=== PATIENT | female | born 1995 | race Caucasian/White ===

== ENCOUNTER 2017-02-08 13:42 | Inpatient (IN) | payer BC, OTHER ==
[~2017-02-08] VITALS: Ht 162.6 cm; Wt 57.0 kg
[2017-02-08] MEDS ORDERED: ESCI1TAB6 PO (14:03)
[2017-02-08] MEDS ORDERED: CETI10TA10 PO (14:03)
[2017-02-08] MEDS ORDERED: [UNRECOGNIZED DRUG - CODE] PO (14:03)
[2017-02-08] MEDS ORDERED: XYLOCAINE 1%/SOD BICARB 20 ML VIAL INFIL ONE (14:30)
[2017-02-08 14:56] LABS: HEMATOCRIT 46.2 % (37-47); MEAN CELL VOLUME 87.8 fL (80-100); MEAN CORPUSCULAR HEMOGLOBIN 29.7 pg (25-34); MEAN CORPUSCULAR HGB CONC 33.8 g/dl (32-36); MEAN PLATELET VOLUME 9.8 fL (7.4-10.4); PLATELET COUNT 306 K/uL (130-400); RED BLOOD COUNT 5.26 M/uL (4.2-5.4); WHITE BLOOD COUNT 9.38 K/uL (4.8-10.8)
[2017-02-08 15:17] LABS: BUN/CREATININE RATIO 16.7 (10-20); CALCIUM 9.3 mg/dl (8.5-10.1); CREATININE 0.7 mg/dl (0.60-1.20); POTASSIUM 3.8 mmol/L (3.5-5.1)
[2017-02-08 15:22] LABS: PREG INTERNAL NEGATIVE QC NEG CLEAR BACKGROUND; PREG INTERNAL POSITIVE QC POS CONTROL LINE
[2017-02-08 15:26] LABS: ACETAMINOPHEN < 2 ug/ml (10-30)
[2017-02-08 15:27] LABS: THYROID STIMULATING HORMONE 1.18 uIu/ml (0.300-4.500)
--- NOTE | 2017-02-08 15:28 | EMERGENCY ROOM VISIT NOTE ---
ED Visit Note 21-year-old female who I was asked by Dr. Mendoza, ED attending physician, to perform a left volar wrist laceration repair. Please see Dr. Mendoza's dictation for further treatment and final disposition. PROCEDURE NOTE: Patient provided verbal consent for laceration repair under local anesthesia. Using buffered 1% lidocaine without epinephrine, good local anesthesia was administered. The wound was then peripherally cleansed with iodine, then the wound was irrigated with approximate 100 mL of normal saline. In sterile fashion, the wound was then approximated using 4-0 nylon simple interrupted sutures 5. Bacitracin dressing was applied. Total laceration length was 22 mm. The patient tolerated the procedure well without any blood loss.
[2017-02-08 16:18] LABS: BENZODIAZEPINE, URINE NEG (NEG); COCAINE,URINE NEG (NEG); PHENCYCLIDINE, URINE NEG (NEG)
[2017-02-08 16:27] LABS: MANUAL MICROSCOPIC REQUIRED? YES; URINE APPEARANCE CLOUDY (CLEAR); URINE BILIRUBIN NEG (NEG); URINE COLOR YELLOW; URINE NITRITE NEG (NEG); URINE PH 5.5 (4.5-7.5); URINE SPECIFIC GRAVITY 1.025 (1.000-1.030); UROBILINOGEN NEG (NEG)
[2017-02-08 16:36] LABS: REVIEW REQ? NO
[2017-02-08 16:38] LABS: URINE BACTERIA 4+ (NEG); URINE RBC 0-4 /hpf (0-4); URINE WBC >30 /hpf (0-5)
[2017-02-08] MEDS ORDERED: SULFAMETHOXAZOLE/TRIMETHOPRIM DS 800/160MG TAB PO STA (16:47)
[2017-02-08] MEDS ORDERED: SODIUM CHLORIDE 0.65% NA SOLN 45 ML (OCEAN) PRN (17:00)
[2017-02-08] MEDS ORDERED: hydrOXYzine HCL 25 MG TAB PO PRN ×2 (17:00)
[2017-02-08] MEDS ORDERED: MAGNESIUM HYDROXIDE SUSP 30 ML UDC PO PRN (17:00)
[2017-02-08] MEDS ORDERED: ACETAMINOPHEN 325 MG TAB PO PRN (17:00)
[2017-02-08] MEDS ORDERED: ALUMINUM/MAGNESIUM SUSP 30 ML UDC PO PRN (17:00)
[2017-02-08] MEDS ORDERED: BISMUTH SUBSALICYLATE PER ML OMNICELL CHARGE PO PRN (17:00)
--- NOTE | 2017-02-08 17:17 | EMERGENCY ROOM VISIT NOTE ---
History Report prepared by Tony: Jn Heath Under the Supervision of: Dr. Azar Mendoza M.D. First contact with patient: 14:11 Chief Complaint: MENTAL HEALTH EVALUATION Stated Complaint: SUICIDE ATTEMPT/302 History of Present Illness The patient is a 21 year old female who presents to the Emergency Room s/p suicide attempt occurring shortly prior to arrival. She states that she cut her left wrist vertically with an X-ACTO knife. Per friend, the patient texted her saying "always remember that I love you", and made allusions to never seeing them again. The patient has a history of depression for which she sees a therapist. She was recently started on medication for her depression, but has not taken it yet. She states that she has been very stressed about school, and going abroad next semester. The patient states that she has never attempted to harm herself in the past, but her friends state that she has attempted suicide before. She denies any pain or vomiting. She denies chance of . The patient's friend notes that the patient took Xanax this morning. She also notes that the patient has a tendency to lie regarding her mental health problems. There is a 302 petitioning statement for the patient. The patient denies any physical complaints. She states her tetanus is up-to-date. Source of History: patient Onset: Shortly prior to arrival Quality: other (suicide attempt) Timing: other (episode) Associated Symptoms: No headache, No neck pain, No chest pain, No vomiting, No abdominal pain, No back pain Review of Systems See HPI for pertinent positives & negatives. A total of 10 systems reviewed and were otherwise negative. Past Medical & Surgical Medical Problems: (1) Depression Family History No pertinent family history stated. Social History Smoking Status: Never Smoker Occupation Status: [employer] student Current/Historical Medications Scheduled Cetirizine Hcl (Zyrtec), 10 MG PO DAILY Escitalopram Oxalate (Lexapro), Unknown Dose PO DAILY Pseudoephedrine HCl (Cvs Nasal Decongestant), 30 MG PO DAILY Allergies Coded Allergies: Amoxicillin (Unverified Allergy, Severe, HIVES, 02/08/17) Physical Exam Vital Signs Date Time Temp Pulse Resp B/P (MAP) Pulse Ox O2 Delivery O2 Flow Rate FiO2 02/08/17 13:56 37.0 91 22 129/91 99 Room Air Physical Exam Constitutional: Vital signs reviewed. Eyes: Pupils are equal round reactive to light. Conjunctiva are noninjected. ENT: Pharynx is clear without erythema or exudate. Mucous membranes are moist. Neck supple without meningeal signs. Respiratory: Clear to auscultation bilaterally. Breath sounds are equal bilaterally. Cardiovascular: Regular rate and rhythm. No rubs or gallops. GI: Soft, nondistended and nontender. Bowel sounds are present. Musculoskeletal: 3 cm longitudinal, superficial laceration to the volar aspect of the left wrist. No tendon injury. Integumentary: No cyanosis. Neurological: The patient is awake and alert. No focal deficits. Psychiatric: Guarded affect. Medical Decision & Procedures Laboratory Results 02/08/17 14:37 02/08/17 14:37 Test 02/08/17 14:37 02/08/17 15:00 02/08/17 15:45 Red Blood Count 5.26 M/uL (4.2-5.4) Mean Corpuscular Volume 87.8 fL (80-100) Mean Corpuscular Hemoglobin 29.7 pg (25-34) Mean Corpuscular Hemoglobin Concent 33.8 g/dl (32-36) RDW Standard Deviation 42.8 fL (36.4-46.3) RDW Coefficient of Variation 13.4 % (11.5-14.5) Mean Platelet Volume 9.8 fL (7.4-10.4) Anion Gap 5.0 mmol/L (3-11) Est Creatinine Clear Calc Drug Dose 110.8 ml/min Estimated GFR () 144.6 Estimated GFR (Non- 124.7 BUN/Creatinine Ratio 16.7 (10-20) Calcium Level 9.3 mg/dl (8.5-10.1) Total Bilirubin 0.8 mg/dl (0.2-1) Direct Bilirubin 0.2 mg/dl (0-0.2) Aspartate Amino Transf (AST/SGOT) 14 U/L (15-37) Alanine Aminotransferase (ALT/SGPT) 20 U/L (12-78) Alkaline Phosphatase 105 U/L (45-117) Total Protein 8.4 gm/dl (6.4-8.2) Albumin 4.2 gm/dl (3.4-5.0) Thyroid Stimulating Hormone (TSH) 1.180 uIu/ml (0.300-4.500) Salicylates Level < 1.7 mg/dl (2.8-20) Acetaminophen Level < 2 ug/ml (10-30) Ethyl Alcohol mg/dL < 3.0 mg/dl (0-3) Urine Test NEG (NEG) Urine Color YELLOW Urine Appearance CLOUDY (CLEAR) Urine pH 5.5 (4.5-7.5) Urine Specific [place] 1.025 (1.000-1.030) Urine Protein TRACE (NEG) Urine Glucose (UA) NEG (NEG) Urine Ketones 1+ (NEG) Urine Occult Blood 1+ (NEG) Urine Nitrite NEG (NEG) Urine Bilirubin NEG (NEG) Urine Urobilinogen NEG (NEG) Urine Leukocyte Esterase MODERATE (NEG) Urine RBC 0-4 /hpf (0-4) Urine WBC >30 /hpf (0-5) Urine Epithelial Cells >30 /lpf (0-5) Urine Bacteria 4+ (NEG) Urine Opiates Screen NEG (NEG) Urine Methadone, Qualitative NEG (NEG) Urine Barbiturates NEG (NEG) Urine Phencyclidine (PCP) Level NEG (NEG) Ur Amphetamine/Methamphetamine NEG (NEG) MDMA (Ecstasy) Screen NEG (NEG) Urine Benzodiazepines Screen NEG (NEG) Urine Cocaine Metabolite NEG (NEG) Urine Marijuana (THC) POS (NEG) Laboratory results as reviewed by me. Medications Administered Medications (Trade) Dose Ordered Sig/Deonte Route Start Time Stop Time Status Last Admin Dose Admin Trimethoprim/ Sulfamethoxazole (Septra Ds 800/ 160MG Tab) 1 tab NOW STAT PO 02/08/17 16:47 02/08/17 16:48 DC 02/08/17 17:08 1 TAB ED Course 1413: The patient was evaluated in room A6. A complete history and physical exam was performed. 1430: Ordered Buffered Lidocaine 1% Inj 20 mL INFIL. 1647: Ordered Septra Ds 800/160 mg Tab PO. 1652: I reassessed the patient. She is resting comfortably. We discussed her test results. The patient verbalized agreement and understanding of the treatment plan. I signed a 201 petitioning statement. The patient will be evaluated by [address] [place] [address] for further management. Medical Decision This is a 21-year-old female presents for mental health evaluation. I did perform a limited focused review of portions of the patient's old chart on the electronic medical record. The patient has had no prior visits to this hospital. I did evaluate the patient as noted above. The patient presents after making suicidal statements and cutting her left wrist. Her friends found her in the shower after she had cut her wrist. I did order and review the patient's blood work as noted in the electronic medical record. The patient's laceration was repaired by Kyle Ricci PA-C. The patient was medically cleared. She was evaluated by the mental health special education case manager. She was willing to sign herself in voluntarily and was accepted by the [address] [place] [address] for inpatient psychiatric care. Urinalysis did show evidence of a UTI. I did discuss this with her. She was given Bactrim here and will continue 3 days of Bactrim on the floor. Medication Reconcilliation Current Medication List: was personally reviewed by me Blood Pressure Screening Patient's blood pressure: Elevated blood pressure Blood pressure disposition: Referred to PCP Impression Primary Impression: Suicide attempt Additional Impressions: Mood disorder UTI (urinary tract infection) Scribe Attestation The scribe's documentation has been prepared under my direct and personally reviewed by me in its entirety. I confirm that the note above accurately reflects all work, treatment, procedures, and medical decision making performed by me. Departure Information Dispostion [facility] ([address] [place] [address]) Referrals No Doctor, Assigned (PCP) Patient Instructions [facility] Problem Qualifiers Additional Impressions: UTI (urinary tract infection) Urinary tract infection type: site unspecified Hematuria presence: without hematuria Qualified Codes: N39.0 - Urinary tract infection, site not specified
[2017-02-08 17:35] VITALS: O2SAT 99
[2017-02-08 18:11] VITALS: BP 120/68; PULSE 88; TEMP 37; Ht 162.6 cm; Wt 57.0 kg
[2017-02-09 07:06] VITALS: BP_SYST 109; BP_SYST 112; BP_DIAS 73; BP_DIAS 80; PULSE 76; PULSE 80; TEMP 36.3
[2017-02-09] MEDS: CETIRIZINE HCL 10 MG TAB PO SCH (08:59)
[2017-02-09] MEDS ORDERED: SULFAMETHOXAZOLE/TRIMETHOPRIM DS 800/160MG TAB PO SCH (09:00)
[2017-02-09] MEDS ORDERED: ESCITALOPRAM OXALATE 10 MG TAB PO ONE (10:04)
--- NOTE | 2017-02-09 10:04 | Psychiatric History & Physical ---
History Date of Service Feb 09, 2017. Identifying Data Damaris Rosas is a 21-year-old [employer] student, who was brought to the emergency room after making a suicide attempt by cutting her left wrist. She is admitted voluntarily. Information is gathered from the patient and considered to be reliable. Chief Complaint "I've been struggling with depression my whole life.". History of Present Illness The patient is a 21-year-old [employer] student who says that she's been depressed her whole life, having realized as early as middle school that she was unhappy. She denies any triggers or precipitants to her depressed mood but says that she's always felt like she wasn't good enough for her life. She never got treatment for her depression until this year when she asked her PCP for an antidepressant and was placed on Lexapro 10 mg daily. She has also been seeing a therapist, Erendira, at [facility]. She has only been on Lexapro for several weeks and as yet has not received any benefit. Over the course of this semester, her depression is getting worse, with increasing frequency of suicidal ideation. She says that she gets "overwhelmed, feels worthless, disappointed" which then leads her to feel guilty. She feels like her friends and family "deserve better" and that it would be "better for everyone" if she were . She woke up yesterday, realizing that she was going to disappoint her parents because she is failing her courses this semester, and knew that she had to commit suicide. At about 2 PM yesterday she took an X-Acto knife to her left wrist. Prior to doing so she had sent text messages to her friend saying that she loved them. The friend sensed something was wrong, came to find her in her bathroom after she cut her wrists. She has not been doing her work, not attending all of her classes, sleeping a great deal in order to cope. She is also scheduled to study abroad in [facility] next semester, but says this is the only thing she is looking forward to. The patient continues to feel depressed today. Her parents have flown in from [place] and will be here in town until her discharge. She reports that she has been sleeping "too much", "like I can't get up". Her appetite has been normal, denies any weight changes. She denies being an anxious person. She denies ever having experienced auditory or visual hallucinations. She denies problems with anger. She denies any symptoms of OCD. She denies any self- injurious behaviors. She denies any episodes of elevated mood, increasing goal- directed behaviors or sleeplessness that would meet criteria for bipolar disorder. Past Psychiatric History Current OP Treatment: therapist (Erendira [facility]) Prior OP Treatment: no prior treatment Prior Psych Hospitalizations: none Access to a Gun: No Suicide Attempts: No Past Medication Trials None Past Medical/Surgical History History of Concussion/Seizure: No (1) No pertinent past medical history Allergies Allergies: Coded Allergies: Amoxicillin (Unverified Allergy, Severe, HIVES, 02/08/17) Home Medications Scheduled Cetirizine Hcl (Zyrtec), 10 MG PO DAILY Escitalopram Oxalate (Lexapro), Unknown Dose PO DAILY Pseudoephedrine HCl (Cvs Nasal Decongestant), 30 MG PO DAILY Family History History of Suicide: No History of Substance Abuse: Yes (half-brother) Psychiatric History: Yes (half-brother with bipolar disorder) aDmaris denies any significant medical conditions and her parents or grandparents Alcohol Use Alcohol Use In Past 12 Months: Yes AUDIT Total Score: 3 The patient says that she will drink "too much" on Wednesday and Wednesday. She admits that she drinks to she's blacked out. She denies any legal consequences to her drinking. She has never been in rehabilitation, never experienced alcohol withdrawal symptoms. Last drink was last Wednesday Smoking Use Smoking Status: Never Smoker Substance History Smokes marijuana on average once per weekend. Personal History Lives in: [employer] while in school, in [place] Childhood: The patient was raised by both parents, parents are both retired pharmacists. 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 Relationship History: never Children: none Spiritual Affiliation: none Legal History: none Psychological Trauma History: Denies Hx Traumatic Event Review of Systems Constitutional: malaise Eyes: denies: no symptoms, as stated in HPI, eye pain, tearing, itching, redness, discharge, double vision, visual changes, blurred vision, photophobia, other ENT: denies: no symptoms reported, see HPI, ear pain, ear discharge, loss of hearing, tinnitus, nasal pain, nasal congestion, rhinorrhea, epistaxis, sore throat, stidor, throat swelling, mouth pain, mouth swelling, dental pain, gum swelling, other Cardiovascular: reports: chest pain Respiratory: denies: no symptoms reported, see HPI, cough, orthopnea, short of breath, stridor, wheezing, sputum production, cyanosis, EWING, PND, other Gastrointestinal: denies no symptoms reported, denies see HPI, denies abdominal pain, denies constipation, denies diarrhea, denies nausea, denies vomiting, denies other Genitourinary - Female: reports: other (LMP February 06) Musculoskeletal: denies no symptoms reported, denies see HPI, denies back pain , denies gout, denies joint pain, denies joint swelling, denies muscle pain, denies muscle stiffness, denies neck pain, denies other Integumentary: other (laceration to left wrist, 5 sutures, dressed) Neurologic: denies: no symptoms, see HPI, headache, numbness, paresthesias, pre -existing deficit, seizure, tingling, tremors, general weakness, tics, focal weakness, vertigo, lethargy, memory loss, dizziness, other Endocrine: denies: no symptoms, as stated in HPI, cold intolerance, heat intolerance, hair changes, goiter, polydipsia, polyuria, skin changes, other Hematologic / Lymphatic: denies: no symptoms, as stated in HPI, abnormal clotting, adenopathy, anemia, easy bleeding, easy bruising, gums bleeding, petechiae, other Examination Physical Examination exam performed by Dr. Mendoza in the emergency Department has been reviewed and accepted his medical clearance for our unit Vital Signs Vital Signs Past 12 Hours Date Time Temp Pulse Resp B/P (MAP) Pulse Ox O2 Delivery O2 Flow Rate FiO2 02/09/17 07:06 36.3 76 16 109/73 80 112/80 Laboratory Results Last 24 Hours Test 02/08/17 14:37 02/08/17 15:00 02/08/17 15:45 White Blood Count 9.38 K/uL Red Blood Count 5.26 M/uL Hemoglobin 15.6 g/dL Hematocrit 46.2 % Mean Corpuscular Volume 87.8 fL Mean Corpuscular Hemoglobin 29.7 pg Mean Corpuscular Hemoglobin Concent 33.8 g/dl RDW Standard Deviation 42.8 fL RDW Coefficient of Variation 13.4 % Platelet Count 306 K/uL Mean Platelet Volume 9.8 fL Sodium Level 135 mmol/L Potassium Level 3.8 mmol/L Chloride Level 102 mmol/L Carbon Dioxide Level 28 mmol/L Anion Gap 5.0 mmol/L Blood Urea Nitrogen 12 mg/dl Creatinine 0.70 mg/dl Est Creatinine Clear Calc Drug Dose 110.8 ml/min Estimated GFR () 144.6 Estimated GFR (Non- 124.7 BUN/Creatinine Ratio 16.7 Random Glucose 84 mg/dl Calcium Level 9.3 mg/dl Total Bilirubin 0.8 mg/dl Direct Bilirubin 0.2 mg/dl Aspartate Amino Transf (AST/SGOT) 14 U/L Alanine Aminotransferase (ALT/SGPT) 20 U/L Alkaline Phosphatase 105 U/L Total Protein 8.4 gm/dl Albumin 4.2 gm/dl Thyroid Stimulating Hormone (TSH) 1.180 uIu/ml Salicylates Level < 1.7 mg/dl Acetaminophen Level < 2 ug/ml Ethyl Alcohol mg/dL < 3.0 mg/dl Urine Test NEG Urine Color YELLOW Urine Appearance CLOUDY Urine pH 5.5 Urine Specific [place] 1.025 Urine Protein TRACE Urine Glucose (UA) NEG Urine Ketones 1+ Urine Occult Blood 1+ Urine Nitrite NEG Urine Bilirubin NEG Urine Urobilinogen NEG Urine Leukocyte Esterase MODERATE Urine RBC 0-4 /hpf Urine WBC >30 /hpf Urine Epithelial Cells >30 /lpf Urine Bacteria 4+ Urine Opiates Screen NEG Urine Methadone, Qualitative NEG Urine Barbiturates NEG Urine Phencyclidine (PCP) Level NEG Ur Amphetamine/Methamphetamine NEG MDMA (Ecstasy) Screen NEG Urine Benzodiazepines Screen NEG Urine Cocaine Metabolite NEG Urine Marijuana (THC) POS Mental Examination During interview pt is: alert and oriented, cooperative Appearance: appropriately dressed, disheveled Eye contact is: good Motor behavior is: steady gait & station Speech: normal in rate, rhythm & volume Affect: mood congruent, depressed, blunted Mood is: depressed Thought process: goal directed Thought content: reality based without delusions Suicidal thought are: present, Plan: present (to cut her wrists) Homicidal thoughts are: denied Hallucinations: denies auditory, denies visual Cognition: memory grossly intact, attention grossly intact, language grossly intact Intelligence estimated to be: average Insight: impaired Judgement: impaired Impression / Recommendations Impression 21-year-old [employer] student admitted voluntarily after making a suicide attempt by cutting her wrists. She is relieved to be here, to get some help and to be able to explain to her parents that she is failing this semester. We have discussed the possibility of a medical withdrawal which she will think about. She would like to continue on to her study abroad program in [facility] in March she has been on Lexapro 10 mg for several weeks and not yet received any benefit and so we will increase this to 20 mg daily. Parents have flown in from [place] and are available for a family meeting which we will try to arrange today. We have discussed her episodic binge drinking in a recommended that she avoid this altogether for the foreseeable future. She will need psychiatric follow-up which may be difficult if she intends to leave for [facility] in March, but well attempt to find a therapist and a psychiatric prescriber in her home town until then. At this time however, the patient requires inpatient mental health treatment due to the severity of her condition and the risk for self-harm if discharged. Inventory Assets Strengths: Good support from parents, willingness to engage in treatment Needs: 2 abstain from cannabis and alcohol Risk Factors Assessment : Yes /single/: Yes Higher / Fall in social status: No Access to guns: No Health problems: No Mental Health Diagnoses: Yes Substance use disorders: Yes Previous attempt: No Previous psychiatric stay: No Hopelessness: Yes Smoker: No Protective Factors Assessment Methodist beliefs: No : No Responsible for young children: No Employed: No Stable relationships: Yes Supportive family: Yes Recommendations (1) Major depressive disorder, recurrent severe without psychotic features 02/09 - Increase Lexapro to 20 mg daily - Family meeting with parents - Every 15 minute checks for safety - Encourage participation in group and individual counseling - Assist the patient to learn and utilize additional healthy coping strategies - The patient will need outpatient services at home until she goes to [facility] - Consider a medical withdrawal from this semester and communicate with the office of student care and advocacy as needed - Coordinate with current therapist, Erendira, at [facility] (2) Alcohol use disorder 02/09 - Recommend abstinence The patient's AUDIT score suggests problematic drinking (Zone III WHO). Brief intervention was offered and accepted Intervention (if performed) was greater than 5 min in length. Brief interventions include: 1. Assess Readiness to Quit, 2. Advise: Help Patient to Reduce or Abstain from Alcohol, 3. Agree: Set Specific, Feasible Goals, 4. Assist: Anticipate barriers, Problem-Solving Solutions. Social work to 5. Arrange: Referrals to appropriate treatment. Summary of intervention: The patient is in precontemplation stage with regards to transtheoretical model of change. The patient is advised to decrease alcohol consumption due to depressant effects and risk of interactions with prescription medications. The patient agreed to abstain and will be provided with recovery materials to continue to education self on how to cope with their condition without drinking. Dr. Grace Chapin has personally participated in the review and development of the treatment plan. CPT Code Initial Hospital Care: 12082
[2017-02-10 06:56] VITALS: BP_SYST 109; BP_SYST 112; BP_DIAS 73; PULSE 64; PULSE 92; TEMP 36.7
[2017-02-10] MEDS: CETIRIZINE HCL 10 MG TAB PO SCH (08:29)
[2017-02-10] MEDS: ESCITALOPRAM OXALATE 20 MG TAB PO SCH (08:29)
--- NOTE | 2017-02-10 10:34 | Psychiatric Progress Notes ---
Progress Note Date of Service Feb 10, 2017. Interval History 21-year-old [employer] student admitted voluntarily after making a suicide attempt by cutting her wrists in the setting of severe academic stress, failing her courses this semester and not wanting to disappoint her parents. Chief Complaint "OK". Subjective Patient was seen & assessed interval progress reviewed with Treatment Team. The patient says that she was able to talk to her parents yesterday during a meeting and is glad to have told them about her problems at school. She remains torn about making a decision re: study abroad in [facility] next semester. She would like to go, having been looking forward to it, but her parents want her to stay home and get treatment. She understands their point of view, but doesn't necessarily agree. She remains anxious about dealing with the school about her grades. She says she is failing all classes, and so deferring grades will likely not help, but would like to consider a medical withdrawal from the semester. She is anxious about doing this alone and would like help to contact the university. She continues to agree that drinking is to be avoided even if she were to go to [facility]. She denies any further SI. Appetite is good. Denies side effects to meds. Review of Systems Constitutional: No fever, No chills, No sweats, No weight loss, No weakness, No fatigue, No problem reported ENT: No hearing loss, No unusual epistaxis, No nasal symptoms, No sore throat, No tinnitus, No dental problems, No trouble swallowing, No problem reported Respiratory: No cough, No sputum, No wheezing, No shortness of breath, No dyspnea on exertion, No dyspnea at rest, No hemoptysis, No problem reported Cardiovascular: No chest pain, No orthopnea, No PND, No edema, No claudication , No palpitations, No problem reported Abdomen: No pain, No nausea, No vomiting, No diarrhea, No constipation, No GI bleeding, No problem reported Musculoskeletal: No joint pain, No muscle pain, No swelling, No calf pain, No problem reported Neurologic: No memory loss, No paralysis, No weakness, No numbness/tingling, No vertigo, No balance problems, No problem reported Psychiatric: + depression symptoms, + anxiety Integumentary: + problem reported (wrist lacs, sutured, bandaged) Sleep Information Total Hours of Sleep: 6.50 Meal Information Percent of Breakfast Consumed: 90 Percent of Lunch Consumed: 75 Percent of Dinner Consumed: 90 Mental Status Exam During interview pt is: alert and oriented, cooperative Appearance: appropriately dressed, disheveled Eye contact is: good Motor behavior is: steady gait & station Speech: normal in rate, rhythm & volume Affect: mood congruent, depressed, blunted Mood is: depressed Thought process: goal directed Thought content: reality based without delusions Suicidal thought are: present, Plan: present Homicidal thoughts are: denied Hallucinations: denies auditory, denies visual Cognition: memory grossly intact, attention grossly intact, language grossly intact Intelligence estimated to be: average Insight: impaired Judgement: impaired Impression Is feeling relieved that her parents now know of her depression and academic struggles. They are supportive and will remain here with her until they can all return to [place]. She has yet to decide about [facility], feeling that she wants to go, but parents want her to remain home and engage in therapy. I have encouraged her to call to the [facility] today to explore her options and understand what needs to be done, and to continue to consider her options regarding next semester. Plan (1) Major depressive disorder, recurrent severe without psychotic features 02/09 - Increase Lexapro to 20 mg daily - Family meeting with parents - Every 15 minute checks for safety - Encourage participation in group and individual counseling - Assist the patient to learn and utilize additional healthy coping strategies - The patient will need outpatient services at home until she goes to [facility] - Consider a medical withdrawal from this semester and communicate with the office of student care and advocacy as needed - Coordinate with current therapist, Erendira, at [facility] 02/10 - Continue Lexapro 20 mg. daily - Call [facility] today to explore options for fall (2) Alcohol use disorder 02/09 - Recommend abstinence The patient's AUDIT score suggests problematic drinking (Zone III WHO). Brief intervention was offered and accepted Intervention (if performed) was greater than 5 min in length. Brief interventions include: 1. Assess Readiness to Quit, 2. Advise: Help Patient to Reduce or Abstain from Alcohol, 3. Agree: Set Specific, Feasible Goals, 4. Assist: Anticipate barriers, Problem-Solving Solutions. Social work to 5. Arrange: Referrals to appropriate treatment. Summary of intervention: The patient is in precontemplation stage with regards to transtheoretical model of change. The patient is advised to decrease alcohol consumption due to depressant effects and risk of interactions with prescription medications. The patient agreed to abstain and will be provided with recovery materials to continue to education self on how to cope with their condition without drinking. Dr. Grace Chapin has personally participated in the review and development of the treatment plan. Discharge / Aftercare Planning Primary Care Physician: Name: Dr. Cotton [facility] Date of Appointment: Feb 15, 2017 Time of Appointment: 10:00 am Appointment Notes: Nurse Practitioner Owen Falcon Therapist: Name: [facility] Date of Appointment: Feb 10, 2017 Time of Appointment: [facility] Clinician: Name: n/a Visit Code E&M Code: 54999 Inventory Assets Strengths: Good support from parents, willingness to engage in treatment Needs: 2 abstain from cannabis and alcohol Risk Factors Assessment : Yes /single/: Yes Higher / Fall in social status: No Health problems: No Mental Health Diagnoses: Yes Substance use disorders: Yes Previous attempt: No Previous psychiatric stay: No Hopelessness: Yes Smoker: No Protective Factors Assessment Congregational beliefs: No : No Responsible for young children: No Employed: No Stable relationships: Yes Supportive family: Yes Data Vital Signs Last 24 Hrs: Date Time Temp Pulse Resp B/P (MAP) Pulse Ox O2 Delivery O2 Flow Rate FiO2 02/10/17 06:56 36.7 64 16 112/73 92 109/73 Meds Administered Last 24 Hrs: Meds Administered (Past 24Hrs) Medications (Trade) Dose Ordered Sig/Deonte Route Start Time Stop Time Status Last Admin Dose Admin Trimethoprim/ Sulfamethoxazole (Septra Ds 800/ 160MG Tab) 1 tab NOW STAT PO 02/08/17 16:47 02/08/17 16:48 DC 02/08/17 17:08 1 TAB Cetirizine HCl (zyrTEC TAB) 10 mg DAILY PO 02/09/17 09:00 03/11/17 08:59 02/10/17 08:29 10 MG Trimethoprim/ Sulfamethoxazole (Septra Ds 800/ 160MG Tab) 1 tab Q12 PO 02/09/17 09:00 02/09/17 13:09 DC 02/09/17 08:59 1 TAB Escitalopram Oxalate (Lexapro Tab) 20 mg QAM PO 02/10/17 09:00 03/12/17 08:59 02/10/17 08:29 20 MG Escitalopram Oxalate (Lexapro Tab) 10 mg 1004 ONCE PO 02/09/17 10:04 02/09/17 10:06 DC 02/09/17 11:02 10 MG Lab Results Last 24 Hrs: 02/08/17 14:37 02/08/17 14:37 Test 02/08/17 14:37 02/08/17 15:00 02/08/17 15:45 Red Blood Count 5.26 M/uL (4.2-5.4) Mean Corpuscular Volume 87.8 fL (80-100) Mean Corpuscular Hemoglobin 29.7 pg (25-34) Mean Corpuscular Hemoglobin Concent 33.8 g/dl (32-36) RDW Standard Deviation 42.8 fL (36.4-46.3) RDW Coefficient of Variation 13.4 % (11.5-14.5) Mean Platelet Volume 9.8 fL (7.4-10.4) Anion Gap 5.0 mmol/L (3-11) Est Creatinine Clear Calc Drug Dose 110.8 ml/min Estimated GFR () 144.6 Estimated GFR (Non- 124.7 BUN/Creatinine Ratio 16.7 (10-20) Calcium Level 9.3 mg/dl (8.5-10.1) Total Bilirubin 0.8 mg/dl (0.2-1) Direct Bilirubin 0.2 mg/dl (0-0.2) Aspartate Amino Transf (AST/SGOT) 14 U/L (15-37) Alanine Aminotransferase (ALT/SGPT) 20 U/L (12-78) Alkaline Phosphatase 105 U/L (45-117) Total Protein 8.4 gm/dl (6.4-8.2) Albumin 4.2 gm/dl (3.4-5.0) Thyroid Stimulating Hormone (TSH) 1.180 uIu/ml (0.300-4.500) Salicylates Level < 1.7 mg/dl (2.8-20) Acetaminophen Level < 2 ug/ml (10-30) Ethyl Alcohol mg/dL < 3.0 mg/dl (0-3) Urine Test NEG (NEG) Urine Color YELLOW Urine Appearance CLOUDY (CLEAR) Urine pH 5.5 (4.5-7.5) Urine Specific [place] 1.025 (1.000-1.030) Urine Protein TRACE (NEG) Urine Glucose (UA) NEG (NEG) Urine Ketones 1+ (NEG) Urine Occult Blood 1+ (NEG) Urine Nitrite NEG (NEG) Urine Bilirubin NEG (NEG) Urine Urobilinogen NEG (NEG) Urine Leukocyte Esterase MODERATE (NEG) Urine RBC 0-4 /hpf (0-4) Urine WBC >30 /hpf (0-5) Urine Epithelial Cells >30 /lpf (0-5) Urine Bacteria 4+ (NEG) Urine Opiates Screen NEG (NEG) Urine Methadone, Qualitative NEG (NEG) Urine Barbiturates NEG (NEG) Urine Phencyclidine (PCP) Level NEG (NEG) Ur Amphetamine/Methamphetamine NEG (NEG) MDMA (Ecstasy) Screen NEG (NEG) Urine Benzodiazepines Screen NEG (NEG) Urine Cocaine Metabolite NEG (NEG) Urine Marijuana (THC) POS (NEG) Date/Time Source Procedure Growth Status 02/08/17 15:45 Urine , Clean Catch Urine Culture - Final MORE THAN THREE TYPES OF ORGANISMS CO... Complete
[2017-02-11 07:03] VITALS: BP_SYST 108; BP_SYST 118; BP_DIAS 73; BP_DIAS 74; PULSE 105; PULSE 74; TEMP 36.5
[2017-02-11] MEDS: ESCITALOPRAM OXALATE 20 MG TAB PO SCH (08:25)
[2017-02-11] MEDS: CETIRIZINE HCL 10 MG TAB PO SCH (08:26)
[2017-02-11] MEDS ORDERED: ESCI1TAB9 PO (09:15)
--- NOTE | 2017-02-11 09:21 | Discharge Instructions ---
Discharge Information Report Includes Report will include the: Discharge Instructions & Summary Admission Admission Date / Time: Feb 08, 2017 at 16:54 Reason for Admission: Depression Discharge Discharge Diagnosis / Problem: Depression Condition at Discharge: Good Discharge Goals Goal(s): Decrease discomfort, Improve function Activity Recommendations Activity Limitations: resume your previous activity . Instructions / Follow-Up Instructions / Follow-Up . SPECIAL CARE INSTRUCTIONS: 1. Follow through with your scheduled aftercare appointments. If unable to keep an appointment, please call to reschedule. 2. Take your medication only as prescribed. Medication should not be changed or stopped without the approval of your doctor. In the event of worsening symptoms or concerns about side effects, contact your doctor immediately. 3. Utilize new healthy coping skills, anger management skills, and stress management skills learned during your hospitalization. Journal feelings and process them with a support person. Identify stressors or situations that may result in relapse, deterioration or inappropriate behaviors and develop a plan to deal with those issues. 4. If your coping skills are ineffective and you are in crisis, contact your outpatient providers for direction. If unable to reach your providers, please call the CAN HELP LINE AT or go to the closest Emergency Room. 5. Avoid alcohol and un-prescribed drugs. 6. You have been provided with the Mental Health Advance Directives Pamphlet for your review. AFTERCARE APPOINTMENTS: * Please call your insurance company prior to your scheduled appointment to confirm your aftercare providers are covered. Take your insurance information to your appointments. . Discharge / Aftercare Planning Primary Care Physician: Name: Dr. Cotton - [facility] Date of Appointment: Feb 15, 2017 Time of Appointment: 10:00 am Appointment Notes: Nurse Practitioner - [facility] Psychiatrist: Name: SRIRAM Roger, [facility] Date of Appointment: Mar 16, 2017 Time of Appointment: 10:00 AM Appointment Notes: Intake, be there at 9:30 a.m. for vitals and paperwork Therapist: Name Of Therapist: Erendira Cline Date of Appointment: Feb 10, 2017 Time of Appointment: Noon Parking Cashier: Name: n/a Other: Name of Appointment #1: Dr. Paul - [facility] Date of Appointment #1: Mar 18, 2017 Time of Appointment #1: 10:40 AM Appointment #1 Notes: Medication management . Follow-Up Care Plan for Follow-Up Care: The patient will see her PCP next week for med management Current Hospital Diet Patient's current hospital diet: Regular Diet Discharge Diet Recommended Diet: Regular Diet Procedures Procedures Performed: No Pending Studies Pending Studies at Discharge: No Medical Emergencies . Who to Call and When: Medical Emergencies: For questions or emergencies related to your hospital stay, please contact the Inpatient Behavioral Health Unit at [phone]. A elevator technician is on-call 21/09 for the Behavioral Health Unit for emergencies At any time you feel your situation is an emergency, you may also call 911 immediately. . Non-Emergent Contact Non-Emergency issues call your: Primary Care Provider Advance Directives Existing Advance Directive: No Do You Have an Existing Mental: No Existing Living Will: No Existing Power of Flag Signalman: No Advance Directives Info Given: To Pt/S.O. Advance Directives Reason: Declines as Mental Health Visit. Discharge Summary Admission HPI Per the Admitting provider: The patient is a 21-year-old [employer] student who says that she's been depressed her whole life, having realized as early as middle school that she was unhappy. She denies any triggers or precipitants to her depressed mood but says that she's always felt like she wasn't good enough for her life. She never got treatment for her depression until this year when she asked her PCP for an antidepressant and was placed on Lexapro 10 mg daily. She has also been seeing a therapist, Erendira, at [facility]. She has only been on Lexapro for several weeks and as yet has not received any benefit. Over the course of this semester, her depression is getting worse, with increasing frequency of suicidal ideation. She says that she gets "overwhelmed, feels worthless, disappointed" which then leads her to feel guilty. She feels like her friends and family "deserve better" and that it would be "better for everyone" if she were . She woke up yesterday, realizing that she was going to disappoint her parents because she is failing her courses this semester, and knew that she had to commit suicide. At about 2 PM yesterday she took an X-Acto knife to her left wrist. Prior to doing so she had sent text messages to her friend saying that she loved them. The friend sensed something was wrong, came to find her in her bathroom after she cut her wrists. She has not been doing her work, not attending all of her classes, sleeping a great deal in order to cope. She is also scheduled to study abroad in [facility] next semester, but says this is the only thing she is looking forward to. The patient continues to feel depressed today. Her parents have flown in from [place] and will be here in town until her discharge. She reports that she has been sleeping "too much", "like I can't get up". Her appetite has been normal, denies any weight changes. She denies being an anxious person. She denies ever having experienced auditory or visual hallucinations. She denies problems with anger. She denies any symptoms of OCD. She denies any self- injurious behaviors. She denies any episodes of elevated mood, increasing goal- directed behaviors or sleeplessness that would meet criteria for bipolar disorder. Hospital Course (1) Major depressive disorder, recurrent severe without psychotic features 02/09 - Increase Lexapro to 20 mg daily - Family meeting with parents - Every 15 minute checks for safety - Encourage participation in group and individual counseling - Assist the patient to learn and utilize additional healthy coping strategies - The patient will need outpatient services at home until she goes to [facility] - Consider a medical withdrawal from this semester and communicate with the office of student care and advocacy as needed - Coordinate with current therapist, Erendira, at [facility] 02/10 - Continue Lexapro 20 mg. daily - Call [facility] today to explore options for fall (2) Alcohol use disorder 02/09 - Recommend abstinence The patient's AUDIT score suggests problematic drinking (Zone III WHO). Brief intervention was offered and accepted Intervention (if performed) was greater than 5 min in length. Brief interventions include: 1. Assess Readiness to Quit, 2. Advise: Help Patient to Reduce or Abstain from Alcohol, 3. Agree: Set Specific, Feasible Goals, 4. Assist: Anticipate barriers, Problem-Solving Solutions. Social work to 5. Arrange: Referrals to appropriate treatment. Summary of intervention: The patient is in precontemplation stage with regards to transtheoretical model of change. The patient is advised to decrease alcohol consumption due to depressant effects and risk of interactions with prescription medications. The patient agreed to abstain and will be provided with recovery materials to continue to education self on how to cope with their condition without drinking. Risk Factors Assessment : Yes /single/: Yes Higher / Fall in social status: No Health problems: No Mental Health Diagnoses: Yes Substance use disorders: Yes Previous attempt: No Previous psychiatric stay: No Hopelessness: Yes Smoker: No Protective Factors Assessment Judaism beliefs: No : No Responsible for young children: No Employed: No Stable relationships: Yes Supportive family: Yes Day of Discharge Assessment COURSE OF HOSPITALIZATION: The patient was on our unit for 3 days. Her Lexapro was increased to 20 mg daily without any side effects. She was admitted after having made a suicide attempt by cutting her wrists in the setting of school stress and chronic undertreated depression. She has been performing poorly at school, feeling her courses and had not told her parents, feeling she would be a disappointment to them. During her stay she was initially quite anxious and depressed although she did not have any further thoughts of suicide. Her parents immediately came from [place] to be with her and participated in a family meeting. It was agreed that she would take a medical withdrawal from the [employer] for the semester. One sticking point is that she has a scheduled study abroad semester in [facility] starting in March. Her parents wanted her to cancel this however she wanted to continue and plan on going. Therapy follow-up will be dependent on her decision. It is recommended that she have follow-up both with a prescriber as well as a therapist. Her parents remained in the area throughout her stay and will be able to pick her up and be with her until they return home to [place]. She had been binge drinking on weekends and the recommendation was to abstain which she agreed to. Follow-up therapy for substance abuse will be managed by her outpatient therapist. She is scheduled to see providers here in [place] assuming she returns to school in March and not [facility]. She progressively improved, anxiety was reduced when a plan was in place and she ceased to have any further suicidal ideation. DAY OF DISCHARGE ASSESSMENT: Today the patient is requesting discharge. She feels remarkably better both in terms of her mood and anxiety. Her parents will be able to pick her up today. She will proceed with a medical withdrawal and go home to [place]. Today she has not yet decided about her trip to [facility]. Today she is casually and appropriately dressed and groomed. Gait and station are within normal limits. Eye contact is good. Affect is restricted but able to smile. Speech is of normal rate volume and tone. Thoughts are organized, goal-directed, and without evidence of thought disorder. Recent and remote memory are intact per conversation. Intelligence is estimated to be average. Insight and judgment are improved over admission. Laboratory Test 02/08/17 14:37 02/08/17 15:00 02/08/17 15:45 White Blood Count 9.38 Red Blood Count 5.26 Hemoglobin 15.6 Hematocrit 46.2 Mean Corpuscular Volume 87.8 Mean Corpuscular Hemoglobin 29.7 Mean Corpuscular Hemoglobin Concent 33.8 RDW Standard Deviation 42.8 RDW Coefficient of Variation 13.4 Platelet Count 306 Mean Platelet Volume 9.8 Sodium Level 135 Potassium Level 3.8 Chloride Level 102 Carbon Dioxide Level 28 Anion Gap 5.0 Blood Urea Nitrogen 12 Creatinine 0.70 Est Creatinine Clear Calc Drug Dose 110.8 Estimated GFR () 144.6 Estimated GFR (Non- 124.7 BUN/Creatinine Ratio 16.7 Random Glucose 84 Calcium Level 9.3 Total Bilirubin 0.8 Direct Bilirubin 0.2 Aspartate Amino Transferase (AST) 14 Alanine Aminotransferase (ALT) 20 Alkaline Phosphatase 105 Total Protein 8.4 Albumin 4.2 Thyroid Stimulating Hormone (TSH) 1.180 Salicylates Level < 1.7 Acetaminophen Level < 2 Ethyl Alcohol mg/dL < 3.0 Urine Test NEG Urine Color YELLOW Urine Appearance CLOUDY Urine pH 5.5 Urine Specific [place] 1.025 Urine Protein TRACE Urine Glucose (UA) NEG Urine Ketones 1+ Urine Occult Blood 1+ Urine Nitrite NEG Urine Bilirubin NEG Urine Urobilinogen NEG Urine Leukocyte Esterase MODERATE Urine RBC 0-4 Urine WBC >30 Urine Epithelial Cells >30 Urine Bacteria 4+ Urine Opiates Screen NEG Urine Methadone, Qualitative NEG Urine Barbiturates NEG Urine Phencyclidine (PCP) Level NEG Ur Amphetamine/Methamphetamine NEG MDMA (Ecstasy) Screen NEG Urine Benzodiazepines Screen NEG Urine Cocaine Metabolite NEG Urine Marijuana (THC) POS Urine Marijuana (THC Carboxy Acid) Pending Total Time Total Time Spent (min): Greater than 30 minutes Total Time Included: examination of the patient, discharge planning, medication reconciliation, communication with other providers Tobacco Cessation at Discharge Smoking Status: Never Smoker FDA approved Prescription: non-smoker
== END 2017-02-11 10:58 | disposition home or self-care (01) | DRG 885 ==
LOC: C.EDA 13:45 → C.MHU 16:54
PROVIDERS: ADMIT Psychiatry & Neurology Psychiatry; ATTEND Psychiatry & Neurology Psychiatry
PROC: 0HQEXZZ Repair Left Lower Arm Skin, External Approach (ICD-10-PCS; principal; 2017-02-08)
DX: F33.9 Major depressive disorder, recurrent, unspecified (principal); S61.512A Laceration without foreign body of left wrist, initial encounter; X78.1XXA Intentional self-harm by knife, initial encounter; Z72.89 Other problems related to lifestyle